=== PATIENT | female | born 1990 | race African-American/Black ===

== ENCOUNTER 2017-03-24 13:05 | Inpatient (IN) | payer OTHER ==
[2017-03-24] VITALS (15 sets, daily range): BP systolic 109–143; BP diastolic 61–87
[~2017-03-24] VITALS: Ht 162.6 cm; Wt 84.8 kg
[~2017-03-24 13:05] MED LIST: NO HOME MEDS; PRENATAL TABLE1 EACH PO
[2017-03-24 14:13] LABS: Estimated Average Glucose 126 mg/dL (70-123)
[2017-03-24 14:25] LABS: EOSINOPHIL (%) 0.4 % (0-5); HEMATOCRIT 34.3 % (36.0-46.0); IMMATURE GRANULOCYTE (%) 0.6 % (0.0-0.7); IMMATURE GRANULOCYTE COUNT 0.1 K/uL; INSTRUMENT ABS NEUTROPHIL CT 7.2 K/uL; LYMPHOCYTE COUNT 1.6 K/uL (1.0-2.8); MCH 28.2 PG (29.0-34.0); MCHC 32.7 G/DL (30.0-36.0); MCV 86.4 FL (83-99); MEAN PLAT.VOLUME 11.9 uM^3 (9.5-12.4); MONOCYTE COUNT 0.8 K/uL (0-0.8); NEUTROPHIL (%) 74.2 % (45-76); NEUTROPHIL COUNT 7.2 K/uL (1.8-6.4); PLATELET COUNT 200 K/uL (156-360); RBC DIS.WIDTH-CV 13.6 % (11.8-14.6); RBC DIS.WIDTH-SD 42.5 % (39-53); RED BLOOD COUNT 3.97 M/uL (3.80-5.20); WHITE BLOOD COUNT 9.7 K/uL (4.1-10.2)
[2017-03-25 07:20] LABS: EOSINOPHIL (%) 0.1 % (0-5); HEMATOCRIT 28.9 % (36.0-46.0); IMMATURE GRANULOCYTE (%) 0.5 % (0.0-0.7); IMMATURE GRANULOCYTE COUNT 0.1 K/uL; INSTRUMENT ABS NEUTROPHIL CT 12.4 K/uL; MCH 28.1 PG (29.0-34.0); MCHC 32.5 G/DL (30.0-36.0); MCV 86.3 FL (83-99); MEAN PLAT.VOLUME 11.6 uM^3 (9.5-12.4); MONOCYTE COUNT 1.8 K/uL (0-0.8); NEUTROPHIL (%) 76.3 % (45-76); NEUTROPHIL COUNT 12.4 K/uL (1.8-6.4); PLATELET COUNT 179 K/uL (156-360); RBC DIS.WIDTH-CV 13.5 % (11.8-14.6); RBC DIS.WIDTH-SD 41.9 % (39-53); RED BLOOD COUNT 3.35 M/uL (3.80-5.20); WHITE BLOOD COUNT 16.3 K/uL (4.1-10.2)
[2017-03-25 07:35] VITALS: BP 113/59
[2017-03-25 16:02] VITALS: BP 106/59
[2017-03-25 23:11] VITALS: BP 118/69
[2017-03-26 07:20] VITALS: BP 112/59
[2017-03-26] MEDS ORDERED: IBUPROFEN800 MG PO (11:25)
[2017-03-26] MEDS ORDERED: FERROCITE324 MG PO (11:26)
[2017-03-26] MEDS ORDERED: DOCUSATE SODIU100 MG PO (11:28)
[2017-03-26 17:07] VITALS: BP 136/74
== END 2017-03-26 17:35 | disposition home or self-care (01) | DRG 775 ==
LOC: LDRP-OP → 2WEST 13:06 → LDRP-OP 04-25 12:40
PROVIDERS: Advanced Practice Midwife; Obstetrics & Gynecology
DX: O99.214 Obesity complicating childbirth (principal); E66.9 Obesity, unspecified; Z68.30 Body mass index [BMI] 30.0-30.9, adult; O70.1 Second degree perineal laceration during delivery; D50.9 Iron deficiency anemia, unspecified; O99.02 Anemia complicating childbirth; Z37.0 Single live birth; Z3A.39 39 weeks gestation of pregnancy
CPT/HCPCS: 83036; 85025; J0595; J7120